=== PATIENT | female | born 1980 | race Caucasian/White ===

== ENCOUNTER 2016-09-02 12:43 | Emergency (ER) | payer OTHER ==
[2016-09-02 12:59] VITALS: PULSE 104; RESP 18
[2016-09-02] MEDS ORDERED: SODIUM CHLORIDE 0.9% 1,000 ML IV STA (14:06)
--- NOTE | 2016-09-02 14:15 | ED ---
Weakness HPI - General Chief complaint: Weakness Stated complaint: Near Syncope Time Seen by Provider: 09/02/16 14:05 Source: patient, RN notes reviewed Mode of arrival: wheelchair Limitations: no limitations - History of Present Illness Initial comments: 36 year old female presents emergency Department chief complaint does not feel well. Patient states that she is nauseated shaky and twitching. Patient states that she feels a little medical level is off. Patient states she is currently seen neurologist for seizure-like activity. Patient states that this is different. Patient has any chest pain, headache, dizziness, vomiting. States she is slightly nauseated. Patient has any focal weakness. Patient states she had a Lamictal level checked today though she has no results. Patient states she takes Lomotil 200 mg twice daily. Patient offers no complaints. - Related Data Home Medications Medication Instructions Recorded Confirmed Topiramate [Topamax] 100 mg PO QAM 06/03/16 09/02/16 Topiramate [Topamax] 200 mg PO HS 06/03/16 09/02/16 lamoTRIgine 200 mg PO BID 06/03/16 09/02/16 ARIPiprazole [Abilify] 10 mg PO DAILY 08/23/16 09/02/16 Sertraline [Zoloft] 100 mg PO DAILY 08/23/16 09/02/16 hydrOXYzine PAMOATE [Vistaril] 50 mg PO HS 08/24/16 09/02/16 Cyclobenzaprine [Flexeril] 10 mg PO TID PRN 08/25/16 09/02/16 Escitalopram [Lexapro] 30 mg PO DAILY 09/02/16 09/02/16 buPROPion HCL [Wellbutrin XL] 300 mg PO DAILY 09/02/16 09/02/16 metFORMIN HCL [Glucophage] 500 mg PO BID 09/02/16 09/02/16 Allergies Allergy/AdvReac Type Severity Reaction Status Date / Time No Known Allergies Allergy Verified 09/02/16 14:30 Review of Systems ROS Statement: Those systems with pertinent positive or pertinent negative responses have been documented in the HPI. ROS Other: All systems not noted in ROS Statement are negative. 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 History of Any Multi-Drug Resistant Organisms: None Reported Past Surgical History: Cholecystectomy, Tubal Ligation Past Anesthesia/Blood Transfusion Reactions: No Reported Reaction Past Psychological History: Anxiety, Bipolar, Depression Smoking Status: Never smoker Past Alcohol Use History: None Reported Past Drug Use History: None Reported - Past Family History Mother Family Medical History: Diabetes Mellitus, Hypertension, Rheumatoid Arthritis ( RA) Father Family Medical History: Hypertension General Exam Limitations: no limitations General appearance: alert, in no apparent distress Head exam: Present: atraumatic, normocephalic, normal inspection Eye exam: Present: normal appearance, PERRL, EOMI. Absent: scleral icterus, conjunctival injection, periorbital swelling Respiratory exam: Present: normal lung sounds bilaterally. Absent: respiratory distress, wheezes, rales, rhonchi, stridor Cardiovascular Exam: Present: regular rate, normal rhythm, normal heart sounds. Absent: systolic murmur, diastolic murmur, rubs, gallop, clicks Extremities exam: Present: normal inspection, full ROM, normal capillary refill , other (Full-strength of upper and lower extremities full range of motion). Absent: tenderness, pedal edema, joint swelling, calf tenderness Back exam: Absent: CVA tenderness (R), CVA tenderness (L) Neurological exam: Present: alert, oriented X3, CN II-XII intact, reflexes normal. Absent: motor sensory deficit Skin exam: Present: warm, dry, intact, normal color. Absent: rash Course Vital Signs 09/02/16 12:55 Temperature 98.3 F Pulse Rate 104 H Respiratory 18 Rate Blood Pressure 138/85 O2 Sat by Pulse 100 Oximetry - Reevaluation(s) Reevaluation #1: 09/02/16 15:58 Family members did come to the desk stating that the patient was having a seizure. I did go back to the room and witnessed her convulsions. patient's hand was placed above her head though she avoid striking her face. Patient had no postictal state. Patient was fighting against me and is untypical of a grand mal seizure. EKG Findings - EKG Comments: EKG Findings:: EKG performed at 14:16 normal sinus rhythm with a rate of 88, NC interval 154, QRS duration 88, QT/QTC 366/442 Medical Decision Making - Medical Decision Making 36-year-old female presented for tremor, feeling weak. Patient states she does not feel right. Patient had multiple evaluations by his psychiatrist, neurologist. Patient has been told this most likely is psychiatric in nature. Patient's did have some sort of motion she had though it seemed to be fake as she responded rate after and had response during the activity. Patient is advised that she is a follow-up outpatient she does have an upcoming appointment with Dr. Mohan. - Lab Data Result diagrams: 09/02/16 14:49 09/02/16 14:49 Lab Results 09/02/16 09/02/16 09/02/16 Range/Units 14:49 14:49 14:49 WBC 8.2 (3.8-10.6) k/uL RBC 4.55 (3.80-5.40) m/uL Hgb 13.1 (11.4-16.0) gm/dL Hct 40.5 (34.0-46.0) % MCV 88.9 D (80.0-100.0) fL MCH 28.8 (25.0-35.0) pg MCHC 32.4 (31.0-37.0) g/dL RDW 13.3 (11.5-15.5) % Plt Count 356 (150-450) k/uL Neutrophils % 72 % Lymphocytes % 21 % Monocytes % 5 % Eosinophils % 0 % Basophils % 0 % Neutrophils # 6.0 (1.3-7.7) k/uL Lymphocytes # 1.7 (1.0-4.8) k/uL Monocytes # 0.4 (0-1.0) k/uL Eosinophils # 0.0 (0-0.7) k/uL Basophils # 0.0 (0-0.2) k/uL Sodium 148 H (137-145) mmol/L Potassium 3.7 (3.5-5.1) mmol/L Chloride 106 (98-107) mmol/L Carbon Dioxide 23 (22-30) mmol/L Anion Gap 19 mmol/L BUN 10 (7-17) mg/dL Creatinine 0.82 (0.52-1.04) mg/dL Est GFR (MDRD) Af Amer >60 (>60 ml/min/1.73 sqM) Est GFR (MDRD) Non-Af >60 (>60 ml/min/1.73 sqM) Glucose 95 (74-99) mg/dL Calcium 9.9 (8.4-10.2) mg/dL Total Bilirubin 0.3 (0.2-1.3) mg/dL AST 19 (14-36) U/L ALT 26 (9-52) U/L Alkaline Phosphatase 47 (38-126) U/L Total Creatine Kinase 48 (30-135) U/L CK-MB (CK-2) 2.0 (0.0-2.4) ng/mL CK-MB (CK-2) Rel Index 4.2 Troponin I <0.012 (0.000-0.034) ng/mL Total Protein 7.6 (6.3-8.2) g/dL Albumin 4.7 (3.5-5.0) g/dL Urine Color Urine Appearance (Clear) Urine pH (5.0-8.0) Ur Specific [place] (1.001-1.035) Urine Protein (Negative) Urine Glucose (UA) (Negative) Urine Ketones (Negative) Urine Blood (Negative) Urine Nitrate (Negative) Urine Bilirubin (Negative) Urine Urobilinogen (<2.0) mg/dL Ur Leukocyte Esterase (Negative) Urine Opiates Screen (NotDetected) Ur Oxycodone Screen (NotDetected) Urine Methadone Screen (NotDetected) Ur Propoxyphene Screen (NotDetected) Ur Barbiturates Screen (NotDetected) U Tricyclic Antidepress (NotDetected) Ur Phencyclidine Scrn (NotDetected) Ur Amphetamines Screen (NotDetected) U Methamphetamines Scrn (NotDetected) U Benzodiazepines Scrn (NotDetected) Urine Cocaine Screen (NotDetected) U Marijuana (THC) Screen (NotDetected) 09/02/16 09/02/16 Range/Units 16:13 16:13 WBC (3.8-10.6) k/uL RBC (3.80-5.40) m/uL Hgb (11.4-16.0) gm/dL Hct (34.0-46.0) % MCV (80.0-100.0) fL MCH (25.0-35.0) pg MCHC (31.0-37.0) g/dL RDW (11.5-15.5) % Plt Count (150-450) k/uL Neutrophils % % Lymphocytes % % Monocytes % % Eosinophils % % Basophils % % Neutrophils # (1.3-7.7) k/uL Lymphocytes # (1.0-4.8) k/uL Monocytes # (0-1.0) k/uL Eosinophils # (0-0.7) k/uL Basophils # (0-0.2) k/uL Sodium (137-145) mmol/L Potassium (3.5-5.1) mmol/L Chloride (98-107) mmol/L Carbon Dioxide (22-30) mmol/L Anion Gap mmol/L BUN (7-17) mg/dL Creatinine (0.52-1.04) mg/dL Est GFR (MDRD) Af Amer (>60 ml/min/1.73 sqM) Est GFR (MDRD) Non-Af (>60 ml/min/1.73 sqM) Glucose (74-99) mg/dL Calcium (8.4-10.2) mg/dL Total Bilirubin (0.2-1.3) mg/dL AST (14-36) U/L ALT (9-52) U/L Alkaline Phosphatase (38-126) U/L Total Creatine Kinase (30-135) U/L CK-MB (CK-2) (0.0-2.4) ng/mL CK-MB (CK-2) Rel Index Troponin I (0.000-0.034) ng/mL Total Protein (6.3-8.2) g/dL Albumin (3.5-5.0) g/dL Urine Color Light Yellow Urine Appearance Clear (Clear) Urine pH 7.0 (5.0-8.0) Ur Specific [place] 1.011 (1.001-1.035) Urine Protein Negative (Negative) Urine Glucose (UA) Negative (Negative) Urine Ketones Negative (Negative) Urine Blood Negative (Negative) Urine Nitrate Negative (Negative) Urine Bilirubin Negative (Negative) Urine Urobilinogen <2.0 (<2.0) mg/dL Ur Leukocyte Esterase Negative (Negative) Urine Opiates Screen Not Detected (NotDetected) Ur Oxycodone Screen Not Detected (NotDetected) Urine Methadone Screen Not Detected (NotDetected) Ur Propoxyphene Screen Not Detected (NotDetected) Ur Barbiturates Screen Not Detected (NotDetected) U Tricyclic Antidepress Not Detected (NotDetected) Ur Phencyclidine Scrn Not Detected (NotDetected) Ur Amphetamines Screen Not Detected (NotDetected) U Methamphetamines Scrn Not Detected (NotDetected) U Benzodiazepines Scrn Not Detected (NotDetected) Urine Cocaine Screen Not Detected (NotDetected) U Marijuana (THC) Screen Not Detected (NotDetected) Disposition Clinical Impression: Pseudoseizure, Occasional tremors Disposition: HOME SELF-CARE Condition: Stable Instructions: Recurrent Seizures in Adults (ED) Additional Instructions: Please return to the Emergency Department if symptoms worsen or any other concerns. Time of Disposition: 16:58
[2016-09-02 15:09] LABS: Basophils % (A) 0 %; CH 29.9; CHCM 33.8; Eosinophils % (A) 0 %; HCT 40.5 % (34.0-46.0); HGB 13.1 gm/dL (11.4-16.0); Luc % (Auto) 1; Lymphocytes # (A) 1.7 k/uL (1.0-4.8); Lymphocytes % (A) 21 %; MCH 28.8 pg (25.0-35.0); MCHC 32.4 g/dL (31.0-37.0); Mean Platelet Volume 7.8; Monocytes # (A) 0.4 k/uL (0-1.0); Monocytes % (A) 5 %; Neutrophils % (A) 72 %; RBC 4.55 m/uL (3.80-5.40); RDW 13.3 % (11.5-15.5); WBC 8.2 k/uL (3.8-10.6); WBC (Perox) 8.26
[2016-09-02 15:18] LABS: MCV 88.9 fL (80.0-100.0)
[2016-09-02 15:24] LABS: ALT 26 U/L (9-52); AST 19 U/L (14-36); Alkaline Phosphatase 47 U/L (38-126); Anion Gap 19 mmol/L; Blood Urea Nitrogen 10 mg/dL (7-17); Calcium 9.9 mg/dL (8.4-10.2); Carbon Dioxide 23 mmol/L (22-30); Chloride 106 mmol/L (98-107); Glucose 95 mg/dL (74-99); Non-African American GFR(MDRD) >60 (>60 ml/min/1.73 sqM); Potassium 3.7 mmol/L (3.5-5.1); Sodium 148 mmol/L (137-145); Total Bilirubin 0.3 mg/dL (0.2-1.3); Total Protein 7.6 g/dL (6.3-8.2)
[2016-09-02 15:27] LABS: Creatine Kinase 48 U/L (30-135)
[2016-09-02 15:40] LABS: Troponin I <0.012 ng/mL (0.000-0.034)
[2016-09-02] MEDS ORDERED: LORazepam 2 MG/ML SYRINGE IV STA (15:57)
[2016-09-02 16:32] LABS: Appearance,Urine Clear (Clear); Bilirubin,Urine Negative (Negative); Glucose,Urine (UA) Negative (Negative); Ketones,Urine Negative (Negative); Leukocyte Esterase,Urine Negative (Negative); Nitrite,Urine Negative (Negative); Protein,Urine Negative (Negative); Specific Gravity,Urine 1.011 (1.001-1.035); UA Billing (MACRO vs. MICRO) CHEM; Urobilinogen,Urine <2.0 mg/dL (<2.0)
[2016-09-02 17:18] VITALS: BP 140/75; TEMP 98.9
== END 2016-09-02 17:18 | disposition home or self-care (01) ==
LOC: EC 12:43
DX: G40.89 Other seizures (principal); R25.1 Tremor, unspecified; F41.9 Anxiety disorder, unspecified; F31.9 Bipolar disorder, unspecified; E66.9 Obesity, unspecified; Z68.35 Body mass index [BMI] 35.0-35.9, adult; Z79.84 Long term (current) use of oral hypoglycemic drugs; Z79.899 Other long term (current) drug therapy
CPT/HCPCS: 99285; 96374; 96361; 36415; 93005; 80053; 80175; 82550; 82553; 84484; 85025; 81003; 80306; J2060

== ENCOUNTER → 2016-09-02 | Outpatient (CLI) | payer OTHER | END | disposition home or self-care (01) | LOC: LABWHC1 12:16 | PROVIDERS: ATTEND Physician Assistant | DX: R56.9 Unspecified convulsions (principal) | CPT/HCPCS: 36415; 80175 ==

== ENCOUNTER → 2016-09-16 | Outpatient (CLI) | payer OTHER | END | disposition home or self-care (01) | LOC: LABWHC1 16:06 | PROVIDERS: ATTEND Psychiatry & Neurology Psychiatry | DX: F31.9 Bipolar disorder, unspecified (principal) | CPT/HCPCS: 36415; 80175 ==

== ENCOUNTER 2020-08-10 12:21 | Observation (INO) | payer OTHER ==
[2020-08-10] MEDS ORDERED: SODIUM CHLORIDE 0.9% 500 ML 500 ML IV STA (12:35)
--- NOTE | 2020-08-10 12:39 | ED ---
General Adult HPI - General Stated complaint: Seizure Time Seen by Provider: 08/10/20 12:23 Source: patient, EMS, RN notes reviewed, old records reviewed - History of Present Illness Initial comments: 40-year-old female presenting with seizure. Patient has known seizure disorder. She is on Topamax and benzodiazepines. She had been noted by friends to have seizure activity, EMS was called patient was given 5 mg of intramuscular Versed and transported to the emergency department. She was initially postictal however after approximate 5 minutes she was able to give a history. Including medications. She does state that she follows with neurology at [facility]. She has approximately 2 seizures weekly. She reports that she is tired but otherwise feels okay. - Related Data Home Medications Medication Instructions Recorded Confirmed Sertraline [Zoloft] 100 mg PO DAILY 08/23/16 08/10/20 Albuterol Sulfate [Proair Hfa] 1 - 2 puff INHALATION RT-Q6H PRN 08/10/20 08/10/20 LORazepam [Ativan] 1 - 2 mg PO DAILY PRN 08/10/20 08/10/20 Levothyroxine Sodium [Synthroid] 175 mcg PO Q48H 08/10/20 08/10/20 [place] Carbonate 600 mg PO BID 08/10/20 08/10/20 QUEtiapine FUMARATE [SEROquel] 600 mg PO HS 08/10/20 08/10/20 Topiramate [Topamax] 200 mg PO BID 08/10/20 08/10/20 lamoTRIgine [LaMICtal] See Taper PO DAILY 08/10/20 08/10/20 metFORMIN HCL 1,000 mg PO BID 08/10/20 08/10/20 rOPINIRole HCL [Requip] 6 mg PO HS 08/10/20 08/10/20 Allergies Allergy/AdvReac Type Severity Reaction Status Date / Time levetiracetam [From Keppra] AdvReac anger Verified 08/10/20 14:12 Review of Systems ROS Statement: Those systems with pertinent positive or pertinent negative responses have been documented in the HPI. ROS Other: All systems not noted in ROS Statement are negative. 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 History of Any Multi-Drug Resistant Organisms: None Reported Past Surgical History: Cholecystectomy, Tubal Ligation Past Anesthesia/Blood Transfusion Reactions: No Reported Reaction Past Psychological History: Anxiety, Bipolar, Depression Past Alcohol Use History: None Reported Past Drug Use History: None Reported - Past Family History Mother Family Medical History: Diabetes Mellitus, Hypertension, Rheumatoid Arthritis (RA) Father Family Medical History: Hypertension General Exam General appearance: in no apparent distress, lethargic Head exam: Present: atraumatic, normocephalic Eye exam: Present: normal appearance, PERRL ENT exam: Present: normal exam Neck exam: Present: normal inspection. Absent: tenderness, meningismus Respiratory exam: Present: normal lung sounds bilaterally. Absent: respiratory distress, wheezes Cardiovascular Exam: Present: regular rate, normal rhythm GI/Abdominal exam: Present: soft. Absent: distended, tenderness, guarding, rebound Extremities exam: Present: normal inspection, normal capillary refill. Absent: pedal edema, calf tenderness Neurological exam: Present: alert, oriented X3 (Slow to respond). Absent: motor sensory deficit Skin exam: Present: warm, dry, intact. Absent: cyanosis, diaphoretic Course Vital Signs 08/10/20 08/10/20 08/10/20 12:26 13:00 14:11 Temperature 98.9 F Pulse Rate 71 77 89 Respiratory 18 18 Rate Blood Pressure 120/71 146/92 O2 Sat by Pulse 100 100 100 Oximetry 08/10/20 08/10/20 08/10/20 14:13 15:26 15:39 Temperature 99 F Pulse Rate 71 77 88 Respiratory 18 18 18 Rate Blood Pressure 112/75 106/73 107/68 O2 Sat by Pulse 100 100 100 Oximetry - Reevaluation(s) Reevaluation #1: 08/10/20 14:18 Patient does have seizure-like activity in the emergency department she is not responsive and she is given 2 mg of Ativan. EKG Findings - EKG Comments: EKG Findings:: EKG: Normal sinus rhythm, rate 67, AR interval 164, QRS duration 104, QTC 445, no ischemic changes, no ST segment elevation. Medical Decision Making - Medical Decision Making 40-year-old female presenting for evaluation of seizure. Patient has history of recurrent seizure. She did have at least 2 seizures prior to arrival and then has an additional 2 seizures while in the emergency department. She was alert and oriented with a nonfocal neurologic exam in between her seizure activity. She has normal CBC. Electrolytes and CMP are pending. Given the recurrent nature of her seizure. Will admit for close monitoring, seizure precaution. Case has been discussed with Dr. Monge who will admit, neurology placed on consult. - Lab Data Result diagrams: 08/10/20 13:50 08/10/20 13:50 Lab Results 08/10/20 08/10/20 Range/Units 13:50 13:50 WBC 5.5 (3.8-10.6) k/uL RBC 4.13 (3.80-5.40) m/uL Hgb 11.8 (11.4-16.0) gm/dL Hct 36.6 (34.0-46.0) % MCV 88.5 (80.0-100.0) fL MCH 28.6 (25.0-35.0) pg MCHC 32.3 (31.0-37.0) g/dL RDW 13.8 (11.5-15.5) % Plt Count 247 (150-450) k/uL MPV 7.3 Neutrophils % 73 % Lymphocytes % 18 % Monocytes % 5 % Eosinophils % 1 % Basophils % 0 % Neutrophils # 4.0 (1.3-7.7) k/uL Lymphocytes # 1.0 (1.0-4.8) k/uL Monocytes # 0.3 (0-1.0) k/uL Eosinophils # 0.1 (0-0.7) k/uL Basophils # 0.0 (0-0.2) k/uL Hypochromasia Moderate Sodium 143 (137-145) mmol/L Potassium 3.3 L (3.5-5.1) mmol/L Chloride 116 H (98-107) mmol/L Carbon Dioxide 18 L (22-30) mmol/L Anion Gap 9 mmol/L BUN 12 (7-17) mg/dL Creatinine 0.86 (0.52-1.04) mg/dL Est GFR (CKD-EPI)AfAm >90 (>60 ml/min/1.73 sqM) Est GFR (CKD-EPI)NonAf 85 (>60 ml/min/1.73 sqM) Glucose 79 (74-99) mg/dL Calcium 9.0 (8.4-10.2) mg/dL Total Bilirubin 0.4 (0.2-1.3) mg/dL AST 21 (14-36) U/L ALT 14 (4-34) U/L Alkaline Phosphatase 34 L (38-126) U/L Total Protein 6.5 (6.3-8.2) g/dL Albumin 3.7 (3.5-5.0) g/dL Disposition Clinical Impression: Intractable seizure disorder, Seizure Disposition: ADMITTED IP TO THIS [facility] Condition: Stable Is patient prescribed a controlled substance at d/c from ED?: No Decision to Admit Reason: Admit from EC Decision Date: 08/10/20 Decision Time: 15:03
[2020-08-10] MEDS ORDERED: LORazepam 2 MG/ML INJ IV STA ×2 (14:03→15:41)
[2020-08-10 14:07] LABS: Basophils % (A) 0 %; Eosinophils # (A) 0.1 k/uL (0-0.7); Eosinophils % (A) 1 %; HCT 36.6 % (34.0-46.0); HGB 11.8 gm/dL (11.4-16.0); Hypochromasia Moderate; Lymphocytes % (A) 18 %; MCH 28.6 pg (25.0-35.0); MCHC 32.3 g/dL (31.0-37.0); MCV 88.5 fL (80.0-100.0); Mean Platelet Volume 7.3; Monocytes # (A) 0.3 k/uL (0-1.0); Monocytes % (A) 5 %; Neutrophils % (A) 73 %; Platelet Count 247 k/uL (150-450); RBC 4.13 m/uL (3.80-5.40); RDW 13.8 % (11.5-15.5); WBC 5.5 k/uL (3.8-10.6)
[2020-08-10] MEDS ORDERED: NALOXONE 0.4 MG/ML 1 ML VIAL IV PRN (14:59)
[2020-08-10 15:22] LABS: ALT 14 U/L (4-34); AST 21 U/L (14-36); African American GFR (CKD) >90 (>60 ml/min/1.73 sqM); Albumin 3.7 g/dL (3.5-5.0); Alkaline Phosphatase 34 U/L (38-126); Anion Gap 9 mmol/L; Blood Urea Nitrogen 12 mg/dL (7-17); Carbon Dioxide 18 mmol/L (22-30); Chloride 116 mmol/L (98-107); Glucose 79 mg/dL (74-99); Non-African American GFR(CKD) 85 (>60 ml/min/1.73 sqM); Potassium 3.3 mmol/L (3.5-5.1); Sodium 143 mmol/L (137-145); Total Bilirubin 0.4 mg/dL (0.2-1.3); Total Protein 6.5 g/dL (6.3-8.2)
[2020-08-10] MEDS ORDERED: LORazepam 2 MG/ML INJ IV PRN (15:46)
[2020-08-10 16:11] LABS: Amorphous Sediment,Urine Rare /hpf; Appearance,Urine Cloudy (Clear); Bacteria,Urine Few /hpf; Bilirubin,Urine Negative (Negative); Blood,Urine Small (Negative); Calcium Oxalate Crystals,Urine Many /hpf; Color,Urine Yellow; Glucose,Urine (UA) Negative (Negative); Ketones,Urine Negative (Negative); Leukocyte Esterase,Urine Large (Negative); Mucus,Urine Rare /hpf; Nitrite,Urine Negative (Negative); PH, Urine 5.5 (5.0-8.0); Protein,Urine Trace (Negative); RBC,Urine 18 /hpf (0-5); Squamous Epithelial Cell,Urine 21 /hpf (0-4); Urobilinogen,Urine <2.0 mg/dL (<2.0); WBC,Urine >182 /hpf (0-5)
[2020-08-10 16:13] LABS: Amphetamine Screen,Urine Not Detected (NotDetected); Barbiturate Screen,Urine Not Detected (NotDetected); Benzodiazepines Screen,Urine Detected (NotDetected); Cocaine Screen,Urine Not Detected (NotDetected); Methadone Screen, Urine Not Detected (NotDetected); Opiate Screen,Urine Not Detected (NotDetected); Oxycodone Screen, Urine Not Detected (NotDetected); Phencyclidine Screen,Urine Not Detected (NotDetected); Tricyclic Antidepressant,Urine Detected (NotDetected); Urn Cannabinoid Scrn Detected (NotDetected)
[2020-08-10] MEDS: SODIUM CHLORIDE 0.9% 1,000 ML IV SCH (16:18)
[2020-08-10] MEDS ORDERED: cefTRIAXone IN SWFI 1,000 MG/10 ML SYRINGE IVP STA (16:23)
[2020-08-10] MEDS: POTASSIUM CHLORIDE 10 MEQ in WATER FOR INJECTION 1 100ML.BAG IVPB SCH ×4 (16:43→23:22)
--- NOTE | 2020-08-10 16:44 | CT ---
EXAMINATION TYPE: CT brain wo con DATE OF EXAM: 08/10/2020 COMPARISON: 08/17/2016. HISTORY: seizures CT DLP: 1102.4 mGycm. Automated Exposure Control for Dose Reduction was Utilized. TECHNIQUE: CT scan of the head is performed without contrast. FINDINGS: There is no acute intracranial hemorrhage, mass effect, or midline shift identified. The ventricles and sulci are within normal limits in size. The globes are intact and the visualized sin uses are clear. There is stable partial pneumatization of the left mastoid air cells, may be congenit al versus prior disease. IMPRESSION: No acute intracranial hemorrhage, mass effect, or midline shift is seen.
--- NOTE | 2020-08-10 18:21 | P.HPIM ---
History of Present Illness H&P Date: 08/10/20 Chief Complaint: seizure 40-year-old female with a past medical history of seizure disorder, pseudoseizures disorder, and bipolar disorder who was brought in the ER by EMS when friends noted seizure activity. EMS gave 5 of IM first said in transport to the emergency department. Initially on arrival she appeared post ictal. Patient reported in the emergency department that she follows with neurology at [facility] has approximately 2 seizures weekly. Initial laboratory analysis showed a potassium of 3.3, chloride 116, and carbon dioxide of 18. She had what appeared to be a pseudoseizure and 1 additional real seizure in the emergency department. She received Ativan. Head CT with no acute process. She was admitted to the cardiac floor for further monitoring. On arrival here she was intermittently following commands and moving her lower extremities were flapping her upper extremities as witnessed by nursing. She then was noted actively s triking the bed with her hands. When I entered the room she was laying on her left hand side and moaning with moving her left upper extremities. Over this was not tonic-clonic in nature and appeared purposeful. When all of this started she was reaching to turn off the alarm on the vitals machine. She then refused to answer any of my questions. When she was she was told she wouldn't be getting any Ativan for this activty her left upper extremity shaking stopped. She then resisted being rolled onto her back and did not participate in physical exam. I informed her that she would recieve ativan if signs of true seizure activty and that she will be seen by neurology and psychiatry. Patient refused to answer all questions. and information obtained from prior records and the emergency department. When I went to leave the room she clearly stated that typically they intubate her for this. She did not have any signs of postictal state. No loss of bowel or bladder, no tongue biting. Review of Systems Pertinent positives and negatives as discussed in HPI, a complete review of systems was performed and all other systems are negative. Past Medical History Past Medical History: No Reported History, Unable to Obtain Additional Past Medical History / Comment(s): Seizure-like activity/pseudoseizures, obesity, Polycystic ovary syndrome maintained on metformin outpatient basis, bipolar disorder/depression. History of Any Multi-Drug Resistant Organisms: None Reported Past Surgical History: Cholecystectomy, Tubal Ligation Past Anesthesia/Blood Transfusion Reactions: No Reported Reaction Past Psychological History: Anxiety, Bipolar, Depression Past Alcohol Use History: None Reported Past Drug Use History: None Reported - Past Family History Mother Family Medical History: Diabetes Mellitus, Hypertension, Rheumatoid Arthritis (RA) Father Family Medical History: Hypertension Medications and Allergies Home Medications Medication Instructions Recorded Confirmed Type Sertraline [Zoloft] 100 mg PO DAILY 08/23/16 08/10/20 History Albuterol Sulfate [Proair Hfa] 1 - 2 puff INHALATION RT-Q6H PRN 08/10/20 08/10/20 History LORazepam [Ativan] 1 - 2 mg PO DAILY PRN 08/10/20 08/10/20 History Levothyroxine Sodium [Synthroid] 175 mcg PO Q48H 08/10/20 08/10/20 History [place] Carbonate 600 mg PO BID 08/10/20 08/10/20 History QUEtiapine FUMARATE [SEROquel] 600 mg PO HS 08/10/20 08/10/20 History Topiramate [Topamax] 200 mg PO BID 08/10/20 08/10/20 History lamoTRIgine [LaMICtal] See Taper PO DAILY 08/10/20 08/10/20 History metFORMIN HCL 1,000 mg PO BID 08/10/20 08/10/20 History rOPINIRole HCL [Requip] 6 mg PO HS 08/10/20 08/10/20 History Allergies Allergy/AdvReac Type Severity Reaction Status Date / Time levetiracetam [From [facility]] AdvReac anger Verified 08/10/20 14:12 Physical Exam Osteopathic Statement: *. No significant issues noted on an osteopathic structural exam other than those noted in the History and Physical/Consult. Vitals: Vital Signs Temp Pulse Pulse Resp BP BP Pulse Ox 08/10/20 15:39 99 F 88 18 107/68 100 08/10/20 15:26 77 18 106/73 100 08/10/20 15:21 97.8 F 72 18 91/54 100 08/10/20 14:13 71 18 112/75 100 08/10/20 14:11 89 100 08/10/20 13:00 77 18 146/92 100 08/10/20 12:26 98.9 F 71 18 120/71 100 Intake and Output 08/10/20 08/10/20 08/10/20 06:59 14:59 22:59 Other: Weight 79.379 kg 79.379 kg General: non toxic, no distress, appears at stated age Derm: warm, dry Head: atraumatic, normocephalic, symmetric Eyes: EOMI, no lid lag, anicteric sclera, pupils equal round reactive to light ENT: Nose and ears atraumatic, no thrush, no pharyngeal erythema Neck: No thyromegaly, no cervical lymphadenopathy, trachea midline, supple Mouth: no lip lesion, mucus membranes moist Cardiovascular: S1S2 reg, no murmur, positive posterior tibial pulse bilateral, no edema, capillary refill less than 2 seconds Lungs: clear to ascultation bilateral, no ronchi, no rales, no wheeze, no accessory muscle use Abdominal: soft, nontender to palpation, no guarding, no appreciable organomegaly, normal bowel sounds Ext: no gross muscle atrophy, Moving all 4 extremieis independently, no contractures Neuro: moaning and lying on her left side with non tonic-clonic shaking, eyes focused ahead without nystagamous, No post ictal state noted as clear spoken when wanted to, moving all 4 extremites independently. patellar reflex 3/4 bicep reflex 2/4. Psych: eyes open and refusing to answer questions. Results CBC & Chem 7: 08/10/20 13:50 08/10/20 13:50 Labs: Abnormal Lab Results - Last 24 Hours (Table) 08/10/20 08/10/20 Range/Units 13:50 15:38 Potassium 3.3 L (3.5-5.1) mmol/L Chloride 116 H (98-107) mmol/L Carbon Dioxide 18 L (22-30) mmol/L Alkaline Phosphatase 34 L (38-126) U/L Urine Appearance Cloudy H (Clear) Urine Protein Trace H (Negative) Urine Blood Small H (Negative) Ur Leukocyte Esterase Large H (Negative) Urine RBC 18 H (0-5) /hpf Urine WBC >182 H (0-5) /hpf Ur Squamous Epith Cells 21 H (0-4) /hpf Calcium Oxalate Crystal Many H (None) /hpf Amorphous Sediment Rare H (None) /hpf Urine Bacteria Few H (None) /hpf Urine Mucus Rare H (None) /hpf U Tricyclic Antidepress Detected H (NotDetected) U Benzodiazepines Scrn Detected H (NotDetected) U Marijuana (THC) Screen Detected H (NotDetected) CT Scan - head: report reviewed Thrombosis Risk Factor Assmnt - DVT/VTE Prophylaxis DVT/VTE Prophylaxis: Pharmacologic Prophylaxis ordered - Choose All That Apply Any of the Below Risk Factors Present?: No Assessment and Plan Assessment: Breakthrough Seizure vs pseudoseizure activity - stat prolactic, lactic acid, and CPK - Neuro and psych consult - seizure precautions - check lamictal and toprmate levels Hypokalemia - repleace and recheck in AM Contaminated UA - repeat in AM The patient is admitted with an anticipated greater than 2 midnight stay for evaluation of breakthrough seizure. Surrogate decision-maker: patient unable to determine CODE STATUS:full by default DVT prophylaxis: SCDs Discussed with: patient, nursing, ED physician Anticipated discharge date: 1-[address]: home A total of 65 minutes was spent on the care of this complex patient more than 50 % of the time was spent in counseling and care coordination.
[2020-08-10 22:53] LABS: Prolactin 12.3 ng/mL (2.8-29.2)
[2020-08-11] MEDS: SODIUM CHLORIDE 0.9% 1,000 ML IV SCH ×2 (04:56→20:17)
[2020-08-11 07:43] LABS: HCT 34.1 % (34.0-46.0); HGB 11.2 gm/dL (11.4-16.0); Hypochromasia Slight; MCH 28.4 pg (25.0-35.0); MCHC 32.7 g/dL (31.0-37.0); MCV 86.7 fL (80.0-100.0); Mean Platelet Volume 7.1; Platelet Count 239 k/uL (150-450); RBC 3.94 m/uL (3.80-5.40); WBC 4.3 k/uL (3.8-10.6)
[2020-08-11 07:55] LABS: African American GFR (CKD) >90 (>60 ml/min/1.73 sqM); Anion Gap 5 mmol/L; Blood Urea Nitrogen 9 mg/dL (7-17); Calcium 8.4 mg/dL (8.4-10.2); Carbon Dioxide 19 mmol/L (22-30); Chloride 116 mmol/L (98-107); Glucose 81 mg/dL (74-99); Non-African American GFR(CKD) >90 (>60 ml/min/1.73 sqM); Potassium 3.7 mmol/L (3.5-5.1); Sodium 140 mmol/L (137-145)
[2020-08-11] MEDS ORDERED: ALBUTEROL NEBULIZED 2.5 MG/3 ML INHALATION PRN (08:12)
[2020-08-11] MEDS ORDERED: LEVOTHYROXINE 88 MCG TAB PO ONE (08:15)
[2020-08-11] MEDS: metFORMIN 500 MG TAB PO SCH ×2 (09:12→20:26)
[2020-08-11] MEDS: SERTRALINE 100 MG TAB PO SCH (09:12)
[2020-08-11] MEDS: LITHIUM CARBONATE 300 MG CAP PO SCH ×2 (09:12→20:27)
[2020-08-11] MEDS: TOPIRAMATE 100 MG TAB PO SCH ×2 (09:12→20:26)
--- NOTE | 2020-08-11 13:51 | P.CN ---
Psychiatric Consult - . Consult date: 08/11/20 Consult:: 08/11/20 13:45 Television Schedule Coordinator attempted to see patient today at the bedside for a psychiatric consult for patient's "bipolar, pseudoseizures". EMR was reviewed and showed the patient presented with seizure-like activity as patient does have a history of seizure disorder and is on Topamax and benzodiazepines. Patient apparently had a witnessed seizure by a friend who called EMS prior to coming hospital. Patient was apparently postictal for about 5 minutes in the ER however was able to give some information at that time. Patient had another 2 seizures in the ER and received Ativan prior to being admitted to the medical floors. Patient had a UDS which is positive for TCAs, benzodiazepines and THC. CAT scan showed no acute changes. The patient has an neurology consult ordered and EEG pending. Nurse taking care of patient claims that she has a flat affect and has been slow to respond and how there has been question of possible pseudoseizure given patient's behaviors. Patient is noted to be on lithium 600 mg twice a day Seroquel 600 mg at bedtime Requip 6 mg daily at bedtime and Zoloft 100 mg daily. Patient was attempted a seen at the bedside however was not responding to typewriter assembler and had her head turned in her eyes closed and appeared to be having writhing movements in her bed. Patient was unable to answer any questions during the evaluation. Plan: Could not do a proper evaluation at this time due to patient's current mental status. Ordered lithium level for tomorrow morning prior to a.m. dosing. Agree with neuro consultation and EEG, awaiting results. Patient can continue on her home dose of medications including lithium 600 twice a day Seroquel 600 at bedtime Requip 6 hs and Zoloft 100 mg daily. Once patient is more awake and able to communicate then can consider reconsulting psych if needed. At this t regino we'll have to await further neurology recommendations to see if this is actually pseudo-seizures. Please contact with any questions thank you.
--- NOTE | 2020-08-11 14:40 | P.PN ---
Subjective Progress Note Date: 08/11/20 (delayed charting seen at 0915) Principal diagnosis: seizure Patient is a 40-year-old female with a past medical history of seizure disorder, pseudoseizures disorder, and bipolar disorder who was brought in the ER by EMS when friends noted seizure activity. EMS gave 5 of IM Versed in transport to the emergency department. Initially on arrival she appeared post ictal. Patient reported in the emergency department that she follows with neurology at [facility] has approximately 2 seizures weekly. Initial laboratory analysis showed a potassium of 3.3, chloride 116, and carbon dioxide of 18. She had what appeared to be a pseudoseizure and 1 additional real seizure in the emergency department with a post ictal state. She received Ativan. Head CT wit h no acute process. She was admitted to the cardiac floor for further monitoring. On arrival here she was intermittently following commands and moving her lower extremities while flapping her upper extremities as witnessed by nursing. She then was noted actively striking the bed with her hands. She was asking to be intubated for her seizures. After this activity a stat lactic acid and prolactin level were ordered and normal. Which are consistent with pseudoseizure. Patient seen and examined at bedside. She shakes her head yes to all questions asked: [place], nausea, chest pain, lgiht headed, short of breath, tired. General: non toxic, no distress, appears at stated age Derm: warm, dry Head: atraumatic, normocephalic, symmetric Eyes: EOMI, no lid lag, anicteric sclera Mouth: no lip lesion, mucus membranes moist Cardiovascular: S1S2 reg, no murmur, positive posterior tibial pulse bilateral, Lungs: CTA bilateral, no rhonchi, no rales , no accessory muscle use Abdominal: soft, nontender to palpation, no guarding, no appreciable organomegaly Ext: no gross muscle atrophy, no edema, no contractures Neuro: CN II-XI grossly intact, no focal neuro deficits Psych: Alert, oriented, Flat affect Breakthrough Seizure with pseudoseizure activity - stat prolactic, lactic acid were normal and CPK mildly elevated. Suspect that patient intially had a seizure in the filed and then subsequent activity noted was from pseudoseizure. - Neuro consult pending - Psych rece appreciated - seizure precautions - Await Lamictal and toprmate levels, conitnue meds Contaminated UA - repeat in AM Hypokalemia, resolved DVT prophylaxis: SCDs Discussed with: patient, nursing Anticipated discharge date: in AM Anticipated discharge place: home A total of 35 minutes was spent on the care of this complex patient more than 50% of the time was spent in counseling and care coordination. Objective - Vital Signs Vital signs: Vital Signs Temp 98.5 F 08/11/20 08:00 Pulse 84 08/11/20 08:00 Resp 18 08/11/20 04:00 BP 97/59 08/11/20 08:00 Pulse Ox 99 08/11/20 08:00 Intake & Output 08/10/20 08/11/20 08/11/20 18:59 06:59 18:59 Intake Total 600 Balance 600 Weight 79.379 kg 79 kg Intake: Intake, IV Titration 600 Amount Potassium Chloride 10 meq 300 In Water For Injection 1 100ml.bag @ 100 mls/hr IVPB Q1HR [facility] Rx#: [id number] Sodium Chloride 0.9% 1, 300 000 ml @ 75 mls/hr IV . [id number] [facility] Rx#:[id number] Other: # Voids 0 - Labs CBC & Chem 7: 08/11/20 06:34 08/11/20 06:34 Labs: Abnormal Lab Results - Last 24 Hours (Table) 08/10/20 08/10/20 08/10/20 Range/Units 13:50 15:38 18:17 Hgb (11.4-16.0) gm/dL Potassium 3.3 L (3.5-5.1) mmol/L Chloride 116 H (98-107) mmol/L Carbon Dioxide 18 L (22-30) mmol/L Alkaline Phosphatase 34 L (38-126) U/L Creatine Kinase 221 H (30-135) U/L Urine Appearance Cloudy H (Clear) Urine Protein Trace H (Negative) Urine Blood Small H (Negative) Ur Leukocyte Esterase Large H (Negative) Urine RBC 18 H (0-5) /hpf Urine WBC >182 H (0-5) /hpf Ur Squamous Epith Cells 21 H (0-4) /hpf Calcium Oxalate Crystal Many H (None) /hpf Amorphous Sediment Rare H (None) /hpf Urine Bacteria Few H (None) /hpf Urine Mucus Rare H (None) /hpf U Tricyclic Antidepress Detected H (NotDetected) U Benzodiazepines Scrn Detected H (NotDetected) U Marijuana (THC) Screen Detected H (NotDetected) 08/11/20 08/11/20 Range/Units 06:34 06:34 Hgb 11.2 L (11.4-16.0) gm/dL Potassium (3.5-5.1) mmol/L Chloride 116 H (98-107) mmol/L Carbon Dioxide 19 L (22-30) mmol/L Alkaline Phosphatase (38-126) U/L Creatine Kinase (30-135) U/L Urine Appearance (Clear) Urine Protein (Negative) Urine Blood (Negative) Ur Leukocyte Esterase (Negative) Urine RBC (0-5) /hpf Urine WBC (0-5) /hpf Ur Squamous Epith Cells (0-4) /hpf Calcium Oxalate Crystal (None) /hpf Amorphous Sediment (None) /hpf Urine Bacteria (None) /hpf Urine Mucus (None) /hpf U Tricyclic Antidepress (NotDetected) U Benzodiazepines Scrn (NotDetected) U Marijuana (THC) Screen (NotDetected) Microbiology - Last 24 Hours (Table) 08/10/20 15:38 Urine Culture - Preliminary Urine,Voided
--- NOTE | 2020-08-11 16:02 | P.CNNES ---
History of Present Illness Consult date: 08/11/20 Requesting physician: Errol Gutierrez Reason for Consult: Seizure History of Present Illness: Patient is a 40-year-old female came to the hospital yesterday at 12:21 PM for multiple seizures. Patient states that she has history of seizure disorder for last 4-1/2 years. Patient follows up with Dr. Mast at [facility]. Patient most currently is on Topamax 200 mg twice a day and Epidiolex 3.5 ml twice a day. Patient says that she is having seizures about 3 times a week. Patient last time seen by her neurologist was couple months ago and has a another appointment due next month. Patient came to the hospital where she has multiple seizures, she believes 9-10 seizures within an hour. She denies mis sing any doses of her seizure medications. Patient states that she did lose control of urine and bit her tongue although I could not see any tongue bite anusha on her tongue. Patient states that she was doing better while she was on Lamictal 200 mg twice a day. Her medications were adjusted, Lamictal weaned off, and now on Epidiolex. Patient believes that this new combination is not working as well. She states that she stopped Lamictal 4 years ago. Patient's vitals on arrival blood pressure 120/71, pulse rate [address] head in EKG normal. Labs reveal normal CBC, normal sodium, potassium 3.3, BUN 12, creatinine 0.86, hepatic panel normal. Prolactin normal 12.3. UA shows large amount of leukocyte Estrace and 18 RBC and more than 182 WBCs. Few bacteria. Urine drug screen positive for tricyclic antidepressant, benzodiazepine and marijuana. Patient has been started on Rocephin 1 g for possible UTI. Patient at present is taking Topamax 200 mg twice a day, and Epidiolex 3.5 mL twice a day. Also on sertraline 100 mg, Requip 6 mg daily at bedtime, Seroquel 600 mg daily at bedtime, metformin 1000 mg twice a day lithium carbonate 600 mg twice a day and levothyroxine. Lorazepam 1-2 mg daily when necessary. On review of records, it appears patient was seen by the neurologist Dr. Buchanan for recurrent seizures and was felt patient has possible nonepileptic psycho genic seizures. Her seizure-like activity increases during holidays and times of stress and after negative interactions with other people. Patient denies any tobacco or alcohol use. Review of Systems Complains of tiredness, sleepiness, denies any double vision loss of vision hearing loss, hoarseness, sore throat, dysphagia. Denies any chest pain shortness of breath, wheezing or cough. Denies nausea vomiting diarrhea. Denies any skin rash. Denies neck or back pain. All other review of systems unremarkable. Past Medical History Past Medical History: No Reported History, Unable to Obtain Additional Past Medical History / Comment(s): Seizure-like activity/pseudoseizures, obesity, Polycystic ovary syndrome maintained on metformin outpatient basis, bipolar disorder/depression. History of Any Multi-Drug Resistant Organisms: None Reported Past Surgical History: Cholecystectomy, Tubal Ligation Past Anesthesia/Blood Transfusion Reactions: No Reported Reaction Past Psychological History: Anxiety, Bipolar, Depression Past Alcohol Use History: None Reported Past Drug Use History: None Reported - Past Family History Mother Family Medical History: Diabetes Mellitus, Hypertension, Rheumatoid Arthritis (RA) Father Family Medical History: Hypertension Medications and Allergies Home Medications Medication Instructions Recorded Confirmed Type Sertraline [Zoloft] 100 mg PO DAILY 08/23/16 08/10/20 History Albuterol Sulfate [Proair Hfa] 1 - 2 puff INHALATION RT-Q6H PRN 08/10/20 08/10/20 History LORazepam [Ativan] 1 - 2 mg PO DAILY PRN 08/10/20 08/10/20 History Levothyroxine Sodium [Synthroid] 175 mcg PO Q48H 08/10/20 08/10/20 History [place] Carbonate 600 mg PO BID 08/10/20 08/10/20 History QUEtiapine FUMARATE [SEROquel] 600 mg PO HS 08/10/20 08/10/20 History Topiramate [Topamax] 200 mg PO BID 08/10/20 08/10/20 History lamoTRIgine [LaMICtal] See Taper PO DAILY 08/10/20 08/10/20 History metFORMIN HCL 1,000 mg PO BID 08/10/20 08/10/20 History rOPINIRole HCL [Requip] 6 mg PO HS 08/10/20 08/10/20 History Allergies Allergy/AdvReac Type Severity Reaction Status Date / Time levetiracetam [From [facility]] AdvReac anger Verified 08/10/20 14:12 Physical Examination - Vital Signs Vital Signs: Vital Signs Temp Pulse Pulse Resp BP BP Pulse Ox 08/11/20 08:00 98.5 F 84 97/59 99 08/11/20 04:00 97.9 F 71 18 111/72 99 08/10/20 23:45 97.7 F 76 17 102/67 98 08/10/20 20:00 97.6 F 75 17 119/66 97 08/10/20 15:39 99 F 88 18 107/68 100 08/10/20 15:26 77 18 106/73 100 08/10/20 15:21 97.8 F 72 18 91/54 100 08/10/20 14:13 71 18 112/75 100 08/10/20 14:11 89 100 08/10/20 13:00 77 18 146/92 100 08/10/20 12:26 98.9 F 71 18 120/71 100 Intake and Output 08/10/20 08/11/20 08/11/20 22:59 06:59 14:59 Intake Total 600 Balance 600 Intake: Intake, IV Titration 600 Amount Potassium Chloride 10 meq 300 In Water For Injection 1 100ml.bag @ 100 mls/hr IVPB Q1HR [facility] Rx#: [id number] Sodium Chloride 0.9% 1, 300 000 ml @ 75 mls/hr IV . [id number] [facility] Rx#:[id number] Other: # Voids 0 Weight 79.379 kg 79 kg On examination patient is a middle aged female, who appears somewhat slow mentation,E, but in no distress. She is slightly somnolent, and follows commands. Patient states it is June and the year is 19 and she thinks that she is in [facility] in [facility]. She knows name of the current in the next president. Speech and language functions are normal. Attention span, concentration is slightly diminished, fund of knowledge is somewhat okay. Detailed testing deferred. On cranial nerve examination pupils are round and reacting, visual nelson are full, extraocular muscles are intact with no nystagmus. Face is symmetric, tongue protrudes to the midline. Palatal elevation sensation normal, hearing and shoulder shrug normal. Facial sensation normal. On muscle strength testing there is no pronator drift. Patient has diffuse generalized weakness, with decreased effort in arms and legs to no more than 4- to 4+. Reflexes are symmetric, plantars downgoing. Sensory touch is equal. No ataxia for [id number] testing. Tone and bulk of muscles normal. Gait deferred. There is no obvious bruit, S1 and S2 audible, chest is clear, abdomen soft nontender, peripheral pulses present. Results - Laboratory Findings CBC and BMP: 08/11/20 06:34 08/11/20 06:34 Abnormal Lab Findings: Abnormal Labs 08/10/20 08/10/20 08/10/20 13:50 15:38 18:17 Hgb Potassium 3.3 L Chloride 116 H Carbon Dioxide 18 L Alkaline Phosphatase 34 L Creatine Kinase 221 H Urine Appearance Cloudy H Urine Protein Trace H Urine Blood Small H Ur Leukocyte Esterase Large H Urine RBC 18 H Urine WBC >182 H Ur Squamous Epith Cells 21 H Calcium Oxalate Crystal Many H Amorphous Sediment Rare H Urine Bacteria Few H Urine Mucus Rare H U Tricyclic Antidepress Detected H U Benzodiazepines Scrn Detected H U Marijuana (THC) Screen Detected H 08/11/20 08/11/20 06:34 06:34 Hgb 11.2 L Potassium Chloride 116 H Carbon Dioxide 19 L Alkaline Phosphatase Creatine Kinase Urine Appearance Urine Protein Urine Blood Ur Leukocyte Esterase Urine RBC Urine WBC Ur Squamous Epith Cells Calcium Oxalate Crystal Amorphous Sediment Urine Bacteria Urine Mucus U Tricyclic Antidepress U Benzodiazepines Scrn U Marijuana (THC) Screen Assessment and Plan Assessment: * 40-year-old female with history of seizure disorder for about 4-1/2 years, came with multiple breakthrough seizures. Uncertain if patient has epileptic seizures, nonepileptic seizures or combination of both. * Altered mental status, possibly due to metabolic encephalopathy. Patient on multiple psychoactive medications which could be contributing. Post ictal effect also a possibility. * UTI * Diabetes Plan: * Patient had an EEG performed today, which was essentially normal awake, drowsy and sleep EEG. No epileptiform activity was seen. * Patient will be continued on Topamax 200 mg twice a day. Patient believes she was doing much better while she was taking Lamictal. We will resume Lamictal 25 mg twice a day for one week and then she will increase to 50 mg twice a day. Patient has an appointment with her neurologist Dr. Mast next month. She will continue Epidiolex for seizure disorder for now. * Patient lives alone. Patient was informed of [place] state law of no driving unless seizure free for 6 months, climbing ladders, operate dangerous machinery or unsupervised swimming. * Patient is on multiple psychoactive medications including lithium 600 mg twice a day, Seroquel 600 mg at bedtime, Requip 6 mg at bedtime, sertraline 100 mg daily besides above seizure medications. Psychiatry on board, adjusting psych medications. Consider decreasing Requip to 4 mg at bedtime.
--- NOTE | 2020-08-11 16:08 | EEG ---
ELECTROENCEPHALOGRAM REPORT DATE OF SERVICE: 08/11/2020. PREAMBLE: This is a 40-year-old female with history of seizure disorder. This study is performed to evaluate for any epileptiform activity. EEG FINDINGS: This is a 21 channel routine EEG recording in a patient utilizing 10-20 international system with referential and bipolar montages. Background consists of well developed, well regulated, moderate voltage activity in mixed alpha with a beta frequency rhythm. Background is posterior dominant and is reactive to eye opening and closing. Photic driving response was not seen. Mild drowsiness was seen with appearance of bilaterally symmetric theta frequency rhythm. Stage II sleep was seen briefly at the end of the study. No focal or generalized epileptiform activity was seen. IMPRESSION: This is essentially a normal awake, drowsy and sleep EEG. Presence of excessive low-voltage fast frequency beta activity is suggestive of medication effect. No epileptiform activity was seen. MMJULIAL / IJN: [id number] / MTDD
[2020-08-11 20:11] LABS: Glucose,Whole Blood 106 mg/dL (75-99)
[2020-08-11] MEDS ORDERED: QUEtiapine 200 MG TAB PO SCH (21:00)
[2020-08-12 07:49] VITALS: RESP 18
[2020-08-12] MEDS: LITHIUM CARBONATE 300 MG CAP PO SCH (09:00)
[2020-08-12] MEDS: metFORMIN 500 MG TAB PO SCH (09:00)
[2020-08-12 09:32] LABS: Lamotrigine (Lamictal) <0.2 ug/mL (2.0-15.0)
[2020-08-12] MEDS ORDERED: lamoTRIgine 25 MG TAB PO SCH (10:30)
[2020-08-12] MEDS: SERTRALINE 100 MG TAB PO SCH (10:49)
[2020-08-12] MEDS: TOPIRAMATE 100 MG TAB PO SCH (10:49)
[2020-08-12] MEDS: SODIUM CHLORIDE 0.9% 1,000 ML IV SCH (10:51)
--- NOTE | 2020-08-12 12:29 | CT ---
EXAMINATION TYPE: CT brain wo con DATE OF EXAM: 08/12/2020 COMPARISON: 08/10/2020 HISTORY: Fall, struck head CT DLP: 1091 mGycm. Automated Exposure Control for Dose Reduction was Utilized. TECHNIQUE: CT scan of the head is performed without contrast. FINDINGS: There is no acute intracranial hemorrhage, mass effect, or midline shift identified. The ventricles and sulci are within normal limits in size. The globes are intact and the visualized sin uses are clear. IMPRESSION: No acute intracranial hemorrhage, mass effect, or midline shift is seen.
[2020-08-12 13:38] LABS: Appearance,Urine Clear (Clear); Bilirubin,Urine Negative (Negative); Blood,Urine Trace (Negative); Color,Urine Colorless; Glucose,Urine (UA) Negative (Negative); Ketones,Urine Negative (Negative); Leukocyte Esterase,Urine Trace (Negative); Mucus,Urine Rare /hpf; Nitrite,Urine Negative (Negative); Protein,Urine Negative (Negative); RBC,Urine <1 /hpf (0-5); Specific Gravity,Urine 1.004 (1.001-1.035); Squamous Epithelial Cell,Urine 2 /hpf (0-4); Urobilinogen,Urine <2.0 mg/dL (<2.0); WBC,Urine 1 /hpf (0-5)
[2020-08-12 14:48] VITALS: BP 119/71; PULSE 66; TEMP 97.8
--- NOTE | 2020-08-12 16:06 | P.PN ---
Subjective Progress Note Date: 08/12/20 Patient offers no complaints. Patient is laying comfortably in the bed. Patient is much more alert and awake. In no distress. Speech and language functions are normal. Cranial nerves are normal. Muscle strength is normal. No ataxia. Objective - Vital Signs Vital signs: Vital Signs Temp 97.8 F 08/12/20 14:00 Pulse 66 08/12/20 14:00 Resp 18 08/12/20 14:00 BP 119/71 08/12/20 14:00 Pulse Ox 100 08/12/20 14:00 Intake & Output 08/11/20 08/12/20 08/12/20 18:59 06:59 18:59 Intake Total 540 Output Total 200 Balance 340 Intake: Oral 540 Output: Urine 200 Other: Voiding Method Incontinent # Voids 0 - Labs CBC & Chem 7: 08/11/20 06:34 08/11/20 06:34 Labs: Abnormal Lab Results - Last 24 Hours (Table) 08/11/20 08/12/20 Range/Units 20:03 11:55 POC Glucose (mg/dL) 106 H (75-99) mg/dL Urine Blood Trace H (Negative) Ur Leukocyte Esterase Trace H (Negative) Urine Mucus Rare H (None) /hpf Microbiology - Last 24 Hours (Table) 08/10/20 15:38 Urine Culture - Preliminary Urine,Voided Gram Neg Bacilli Assessment and Plan Assessment: * 40-year-old female with history of seizure disorder for about 4-1/2 years, came with multiple breakthrough seizures. Uncertain if patient has epileptic seizures, nonepileptic seizures or combination of both. * Altered mental status, possibly due to metabolic encephalopathy. Patient on multiple psychoactive medications which could be contributing. Post ictal effect also a possibility. * UTI * Diabetes Plan: * EEG performed 08/11/2020 was essentially normal awake, drowsy and sleep EEG. No epileptiform activity was seen. * Patient will be continued on Topamax 200 mg twice a day. Patient gives him mo re information about her dose of Lamictal. Patient today tells me that she is taking Lamictal 75 mg at bedtime as per her psychiatrist. She feels she was doing the best when she was taking Lamictal 200 mg twice a day. She was taken off Lamictal by her neurologist. She however wants to go back on it. Patient earlier today had a fall. We will therefore optimize Lamictal to 50 mg twice a day. Patient has an appointment with her neurologist Dr. Mast next month. She will continue Epidiolex for seizure disorder for now. * Patient lives alone. Patient was informed of [place] state law of no driving unless seizure free for 6 months, climbing ladders, operate dangerous machinery or unsupervised swimming. * Patient is on multiple psychoactive medications including lithium 600 mg twice a day, Seroquel 600 mg at bedtime, Requip 6 mg at bedtime, sertraline 100 mg daily besides above seizure medications. Psychiatry on board, adjusting psych medications. Consider decreasing Requip to 4 mg at bedtime.
--- NOTE | 2020-08-12 16:25 | P.DS ---
Providers Date of admission: 08/10/20 14:59 Expected date of discharge: 08/12/20 Attending physician: Sabrina Rice DO Consults: 08/10/20 14:59 Consult Physician Routine Consulting Provider: Anson Sauer Consult Reason/Comments: Seizure Do you want consulting provider notified?: Yes 08/10/20 19:15 Consult Physician Routine Consulting Provider: Jose Blevins Consult Reason/Comments: bipolar disorder, pseudoseizure Do you want consulting provider notified?: Yes Primary care physician: Stated None Hospital Course: Discharge Diagnosis: breakthrough seizures pseudoseizures acute encephalopathy- post ictal vs psychotropic medications UTI ruled out on 10-49,000 colonies without symptoms consistent with bacturia Hypokalemia Hospital Course: Patient is a 40-year-old female with a past medical history of seizure disorder, pseudoseizures disorder, and bipolar disorder who was brought in the ER by EMS when friends noted seizure activity. EMS gave 5 of IM Versed in transport to the emergency department. Initially on arrival she appeared post ictal. Patient reported in the emergency department that she follows with neurology at [facility] has approximately 2 seizures weekly. Initial laboratory analysis showed a potassium of 3.3, chloride 116, and carbon dioxide of 18. She had what appeared to be a pseudoseizure and 1 additional real seizure in the emergency department with a post ictal state. She received Ativan. Head CT with no acute process. She was admitted to the cardiac floor for further monitoring. On arrival here she was intermittently following commands and moving her lower extremities while flapping her upper extremities as witnessed by nursing. She then was noted actively striking the bed with her hands. She was asking to be intubated for her seizures. After this activity a stat lactic acid and prolactin level were ordered and normal. Which are consistent with pseudoseizure. She was seen by neuro and had felt better on increased lamicatal dosing. She had been taking Lamictal 75 mg at home. She will be started on Lamictal 50 mg BID. She will follow with her outpatient neurologist and psychiatrist. Her EEG was noraml. Her Lamotrigine level was <0.2 and [place] level was 0.2, On day of discharge she did have a fall, she reports that she does not know why she fell. Witnessed by nursing patient had taken her bed rails down. She had a repeat head CT without any acute process. She was monitored for 6 hours without change in neurologist status. She was determined stable for discharge home. Patient seen and examined at bedside. Vital signs reviewed and stable. General: non toxic, no distress, appears at stated age Derm: warm, dry Head: atraumatic, normocephalic, symmetric Eyes: EOMI, no lid lag, anicteric sclera Mouth: no lip lesion, mucus membranes moist Cardiovascular: S1S2 reg, no murmur, positive posterior tibial pulse bilateral, Lungs: CTA bilateral, no rhonchi, no rales , no accessory muscle use Abdominal: soft, nontender to palpation, no guarding, no appreciable organomegaly Ext: no gross muscle atrophy, no edema, no contractures, no pain to palpation of wrist, elbows, shoulders. Muscle strength 4/5 in b/l UE with giveway weakness. No pain to palpation of bilateral ankles, knees. No pain with pelvic rock. Neuro: CN II-XI grossly intact, no focal neuro deficits Psych: Alert, oriented, flat and withdrawn. A total of 35 minutes of time were spent preparing this complex discharge summary . Patient Condition at Discharge: Stable Plan - Discharge Summary Discharge Rx Participant: No New Discharge Prescriptions: New lamoTRIgine [LaMICtal] 50 mg PO BID #60 tab Continue rOPINIRole HCL [Requip] 6 mg PO HS Topiramate [Topamax] 200 mg PO BID QUEtiapine FUMARATE [SEROquel] 600 mg PO HS metFORMIN HCL 1,000 mg PO BID Albuterol Sulfate [Proair Hfa] 1 - 2 puff INHALATION RT-Q6H PRN PRN Reason: Shortness Of Breath [place] Carbonate 600 mg PO BID Levothyroxine Sodium [Synthroid] 175 mcg PO Q48H LORazepam [Ativan] 1 - 2 mg PO DAILY PRN PRN Reason: Anxiety Discontinued lamoTRIgine [LaMICtal] See Taper PO DAILY No Action Sertraline [Zoloft] 100 mg PO DAILY Discharge Medication List Sertraline [Zoloft] 100 mg PO DAILY 08/23/16 [History] Albuterol Sulfate [Proair Hfa] 1 - 2 puff INHALATION RT-Q6H PRN 08/10/20 [History] LORazepam [Ativan] 1 - 2 mg PO DAILY PRN 08/10/20 [History] Levothyroxine Sodium [Synthroid] 175 mcg PO Q48H 08/10/20 [History] [place] Carbonate 600 mg PO BID 08/10/20 [History] QUEtiapine FUMARATE [SEROquel] 600 mg PO HS 08/10/20 [History] Topiramate [Topamax] 200 mg PO BID 08/10/20 [History] metFORMIN HCL 1,000 mg PO BID 08/10/20 [History] rOPINIRole HCL [Requip] 6 mg PO HS 08/10/20 [History] lamoTRIgine [LaMICtal] 50 mg PO BID #60 tab 08/12/20 [Rx] Follow up Appointment(s)/Referral(s): None,Stated [Primary Care Provider] - 1-2 days Activity/Diet/Wound Care/Special Instructions: Activity: as tolerated Diet: Regular Special Instructions: Follow-up with your psychiatrist on 08/18 as already scheduled Follow-up with your neurologist as scheduled next month [place] state law of no driving unless seizure free for 6 months. No climbing ladders, operating dangerous machinery or unsupervised swimming.
[2020-08-13] MEDS ORDERED: LEVOTHYROXINE 88 MCG TAB PO SCH (06:30)
[2020-08-14 08:00] LABS: Topiramate 6.6 ug/mL (2.0-20.0)
== END 2020-08-12 17:38 | disposition home or self-care (01) ==
LOC: EC 12:21 → 3SCARD 14:59 → INTOOBSV 14:59 → 3SCARD 15:40 → 5NMEDONC 08-11 22:59 → UNDODISIN 08-12 17:38
PROVIDERS: ADMIT Internal Medicine; ATTEND Internal Medicine
DX: G40.919 Epilepsy, unspecified, intractable, without status epilepticus (principal); G93.40 Encephalopathy, unspecified; E87.6 Hypokalemia; F31.9 Bipolar disorder, unspecified; R74.8 Abnormal levels of other serum enzymes; R32 Unspecified urinary incontinence; E11.9 Type 2 diabetes mellitus without complications; F41.9 Anxiety disorder, unspecified; E66.9 Obesity, unspecified; Z68.29 Body mass index [BMI] 29.0-29.9, adult; E28.2 Polycystic ovarian syndrome; R06.02 Shortness of breath; Z90.49 Acquired absence of other specified parts of digestive tract; Z79.899 Other long term (current) drug therapy; Z79.890 Hormone replacement therapy; Z79.84 Long term (current) use of oral hypoglycemic drugs; Z88.8 Allergy status to other drugs, medicaments and biological substances; Z82.49 Family history of ischemic heart disease and other diseases of the circulatory system; Z83.3 Family history of diabetes mellitus; Z82.61 Family history of arthritis
CPT/HCPCS: 96366; 96376; 96361; 96365; 96375; 99285; 36415; 95819; 93005; 80053; 80048; 80175; 80201; 82550; 83605; 80178; 85025; 85027; 81001 ×2; 84146; 80306; 87086; 87077; 87186; 70450 ×2; G0378 ×4; J2060; J0696; J3480; 96374

== ENCOUNTER 2020-08-15 00:12 | Observation (INO) | payer OTHER ==
--- NOTE | 2020-08-15 00:21 | ED ---
Seizure HPI - General Stated Complaint: seizure Time Seen by Provider: 08/15/20 00:19 Source: RN notes reviewed, old records reviewed Limitations: no limitations - History of Present Illness Initial Comments: This is a 40-year-old female presents is a poor strain currently secondary to postictal state, patient's brought in by EMS for seizure-like activity. Patient be he did have community mental health out to her house, patient denies drug or alcohol abuse MD Complaint: seizure, possible seizure -: hour(s) Description of Episode: loss of consciousness, tonic-clonic movement, post-event confusion -: second(s) Witnessed: yes - by bystander Seizure History: known seizure disorder, history of withdrawal seizures, history of non-compliance with treatment Possible Precipitating Event: none Associated Symptoms: denies other symptoms Treatments Prior to Arrival: none - Related Data Home Medications Medication Instructions Recorded Confirmed Sertraline [Zoloft] 100 mg PO DAILY 08/23/16 08/10/20 Albuterol Sulfate [Proair Hfa] 1 - 2 puff INHALATION RT-Q6H PRN 08/10/20 08/10/20 LORazepam [Ativan] 1 - 2 mg PO DAILY PRN 08/10/20 08/10/20 Levothyroxine Sodium [Synthroid] 175 mcg PO Q48H 08/10/20 08/10/20 [place] Carbonate 600 mg PO BID 08/10/20 08/10/20 QUEtiapine FUMARATE [SEROquel] 600 mg PO HS 08/10/20 08/10/20 Topiramate [Topamax] 200 mg PO BID 08/10/20 08/10/20 metFORMIN HCL 1,000 mg PO BID 08/10/20 08/10/20 rOPINIRole HCL [Requip] 6 mg PO HS 08/10/20 08/10/20 Previous Rx's Medication Instructions Recorded lamoTRIgine [LaMICtal] 50 mg PO BID #60 tab 08/12/20 Allergies Allergy/AdvReac Type Severity Reaction Status Date / Time levetiracetam [From [facility]] AdvReac anger Verified 08/10/20 14:12 Review of Systems ROS Statement: Those systems with pertinent positive or pertinent negative responses have been documented in the HPI. ROS Other: All systems not noted in ROS Statement are negative. Past Medical History Past Medical History: No Reported History, Unable to Obtain Additional Past Medical History / Comment(s): Seizure-like activity/pseudoseizures, obesity, Polycystic ovary syndrome maintained on metformin outpatient basis, bipolar disorder/depression. History of Any Multi-Drug Resistant Organisms: None Reported Past Surgical History: Cholecystectomy, Tubal Ligation Past Anesthesia/Blood Transfusion Reactions: No Reported Reaction Past Psychological History: Anxiety, Bipolar, Depression Past Alcohol Use History: None Reported Past Drug Use History: None Reported - Past Family History Mother Family Medical History: Diabetes Mellitus, Hypertension, Rheumatoid Arthritis (RA) Father Family Medical History: Hypertension General Exam General appearance: alert, in no apparent distress Head exam: Present: atraumatic, normocephalic, normal inspection Eye exam: Present: normal appearance, PERRL, EOMI. Absent: scleral icterus, conjunctival injection, periorbital swelling ENT exam: Present: normal exam, mucous membranes moist Neck exam: Present: normal inspection. Absent: tenderness, meningismus, lymphadenopathy Respiratory exam: Present: normal lung sounds bilaterally. Absent: respiratory distress, wheezes, rales, rhonchi, stridor Cardiovascular Exam: Present: regular rate, normal rhythm, normal heart sounds. Absent: systolic murmur, diastolic murmur, rubs, gallop, clicks GI/Abdominal exam: Present: soft, normal bowel sounds. Absent: distended, tenderness, guarding, rebound, rigid Extremities exam: Present: normal inspection, full ROM, normal capillary refill. Absent: tenderness, pedal edema, joint swelling, calf tenderness Back exam: Present: normal inspection Neurological exam: Present: alert, oriented X3, CN II-XII intact Psychiatric exam: Present: normal affect, normal mood Skin exam: Present: warm, dry, intact, normal color. Absent: rash Course Vital Signs 08/15/20 08/15/20 00:14 02:15 Temperature 97.8 F Pulse Rate 86 80 Respiratory 18 18 Rate Blood Pressure 118/80 97/68 O2 Sat by Pulse 99 100 Oximetry - Reevaluation(s) Reevaluation #1: 08/15/20 02:32 Medical record is reviewed Reevaluation #2: 08/15/20 02:32 No recurrent seizures here in the ER Reevaluation #3: 08/15/20 02:32 Patient informed results, questions have been answered Medical Decision Making - Medical Decision Making 40 female to the ER for seizure history of seizures. Patient will be discharged home - Lab Data Result diagrams: 08/15/20 00:38 08/15/20 00:38 Lab Results 08/15/20 08/15/20 Range/Units 00:38 00:38 WBC 7.4 (3.8-10.6) k/uL RBC 4.09 (3.80-5.40) m/uL Hgb 11.6 (11.4-16.0) gm/dL Hct 34.6 (34.0-46.0) % MCV 84.6 (80.0-100.0) fL MCH 28.3 (25.0-35.0) pg MCHC 33.5 (31.0-37.0) g/dL RDW 14.3 (11.5-15.5) % Plt Count 233 (150-450) k/uL MPV 6.8 Neutrophils % 85 % Lymphocytes % 10 % Monocytes % 2 % Eosinophils % 1 % Basophils % 1 % Neutrophils # 6.3 (1.3-7.7) k/uL Lymphocytes # 0.8 L (1.0-4.8) k/uL Monocytes # 0.2 (0-1.0) k/uL Eosinophils # 0.0 (0-0.7) k/uL Basophils # 0.1 (0-0.2) k/uL Sodium 139 (137-145) mmol/L Potassium 4.1 (3.5-5.1) mmol/L Chloride 110 H (98-107) mmol/L Carbon Dioxide 22 (22-30) mmol/L Anion Gap 7 mmol/L BUN 12 (7-17) mg/dL Creatinine 0.77 (0.52-1.04) mg/dL Est GFR (CKD-EPI)AfAm >90 (>60 ml/min/1.73 sqM) Est GFR (CKD-EPI)NonAf >90 (>60 ml/min/1.73 sqM) Glucose 127 H (74-99) mg/dL Calcium 8.6 (8.4-10.2) mg/dL Total Bilirubin 0.3 (0.2-1.3) mg/dL AST 26 (14-36) U/L ALT 14 (4-34) U/L Alkaline Phosphatase 31 L (38-126) U/L Total Protein 7.0 (6.3-8.2) g/dL Albumin 4.2 (3.5-5.0) g/dL Salicylates <1.0 mg/dL Acetaminophen <10.0 ug/mL Phenytoin <3.0 ug/mL Valproic Acid <10.0 ug/mL Carbamazepine <3.0 ug/mL Serum Alcohol <10 mg/dL - EKG Data -: EKG Interpreted by Me (EKG sinus rhythm 87, IN 136 QRS 96 QTc 495) Disposition Clinical Impression: Epileptic seizure, generalized Disposition: HOME SELF-CARE Condition: Fair Instructions (If sedation given, give patient instructions): Recurrent Seizures in Adults (ED) Is patient prescribed a controlled substance at d/c from ED?: No Referrals: None,Stated [Primary Care Provider] - 1-2 days
[2020-08-15] MEDS ORDERED: SODIUM CHLORIDE 0.9% 1,000 ML IV STA ×2 (00:26)
[2020-08-15 01:02] LABS: Basophils # (A) 0.1 k/uL (0-0.2); Basophils % (A) 1 %; Eosinophils % (A) 1 %; HCT 34.6 % (34.0-46.0); HGB 11.6 gm/dL (11.4-16.0); Lymphocytes # (A) 0.8 k/uL (1.0-4.8); Lymphocytes % (A) 10 %; MCH 28.3 pg (25.0-35.0); MCHC 33.5 g/dL (31.0-37.0); MCV 84.6 fL (80.0-100.0); Mean Platelet Volume 6.8; Monocytes # (A) 0.2 k/uL (0-1.0); Monocytes % (A) 2 %; Neutrophils # (A) 6.3 k/uL (1.3-7.7); Neutrophils % (A) 85 %; Platelet Count 233 k/uL (150-450); RBC 4.09 m/uL (3.80-5.40); RDW 14.3 % (11.5-15.5); WBC 7.4 k/uL (3.8-10.6)
[2020-08-15 01:14] LABS: Acetaminophen <10.0 ug/mL; African American GFR (CKD) >90 (>60 ml/min/1.73 sqM); Albumin 4.2 g/dL (3.5-5.0); Alcohol <10 mg/dL; Anion Gap 7 mmol/L; Calcium 8.6 mg/dL (8.4-10.2); Carbamazepine (Tegretol) <3.0 ug/mL; Carbon Dioxide 22 mmol/L (22-30); Chloride 110 mmol/L (98-107); Glucose 127 mg/dL (74-99); Non-African American GFR(CKD) >90 (>60 ml/min/1.73 sqM); Phenytoin (Dilantin) <3.0 ug/mL; Salicylate <1.0 mg/dL; Sodium 139 mmol/L (137-145); Total Bilirubin 0.3 mg/dL (0.2-1.3)
[2020-08-15 01:17] LABS: Valproic Acid (Depakene) <10.0 ug/mL
[2020-08-15 01:20] LABS: ALT 14 U/L (4-34); AST 26 U/L (14-36); Alkaline Phosphatase 31 U/L (38-126); Blood Urea Nitrogen 12 mg/dL (7-17); Potassium 4.1 mmol/L (3.5-5.1)
[2020-08-15] MEDS ORDERED: LORazepam 2 MG/ML INJ IM STA (02:42)
[2020-08-15] MEDS ORDERED: LORazepam 1 MG TAB PO STA (03:40)
--- NOTE | 2020-08-15 06:03 | ED ---
Medical Decision Making - Medical Decision Making 40 female to the ED w recurrent seizure, patient will be admitted for unresponsiveness. Prolonged Posticalt v histrionic. - Lab Data Result diagrams: 08/15/20 00:38 08/15/20 00:38 Lab Results 08/15/20 08/15/20 Range/Units 00:38 00:38 WBC 7.4 (3.8-10.6) k/uL RBC 4.09 (3.80-5.40) m/uL Hgb 11.6 (11.4-16.0) gm/dL Hct 34.6 (34.0-46.0) % MCV 84.6 (80.0-100.0) fL MCH 28.3 (25.0-35.0) pg MCHC 33.5 (31.0-37.0) g/dL RDW 14.3 (11.5-15.5) % Plt Count 233 (150-450) k/uL MPV 6.8 Neutrophils % 85 % Lymphocytes % 10 % Monocytes % 2 % Eosinophils % 1 % Basophils % 1 % Neutrophils # 6.3 (1.3-7.7) k/uL Lymphocytes # 0.8 L (1.0-4.8) k/uL Monocytes # 0.2 (0-1.0) k/uL Eosinophils # 0.0 (0-0.7) k/uL Basophils # 0.1 (0-0.2) k/uL Sodium 139 (137-145) mmol/L Potassium 4.1 (3.5-5.1) mmol/L Chloride 110 H (98-107) mmol/L Carbon Dioxide 22 (22-30) mmol/L Anion Gap 7 mmol/L BUN 12 (7-17) mg/dL Creatinine 0.77 (0.52-1.04) mg/dL Est GFR (CKD-EPI)AfAm >90 (>60 ml/min/1.73 sqM) Est GFR (CKD-EPI)NonAf >90 (>60 ml/min/1.73 sqM) Glucose 127 H (74-99) mg/dL Calcium 8.6 (8.4-10.2) mg/dL Total Bilirubin 0.3 (0.2-1.3) mg/dL AST 26 (14-36) U/L ALT 14 (4-34) U/L Alkaline Phosphatase 31 L (38-126) U/L Total Protein 7.0 (6.3-8.2) g/dL Albumin 4.2 (3.5-5.0) g/dL Salicylates <1.0 mg/dL Acetaminophen <10.0 ug/mL Phenytoin <3.0 ug/mL Valproic Acid <10.0 ug/mL Carbamazepine <3.0 ug/mL Serum Alcohol <10 mg/dL Disposition Clinical Impression: Epileptic seizure, generalized Disposition: ADMITTED IP TO THIS HOSP Condition: Fair Instructions (If sedation given, give patient instructions): Recurrent Seizures in Adults (ED) Referrals: None,Stated [Primary Care Provider] - 1-2 days
[2020-08-15] MEDS ORDERED: LORazepam 2 MG/ML INJ IV PRN (06:33)
[2020-08-15 10:25] LABS: Appearance,Urine Clear (Clear); Bilirubin,Urine Negative (Negative); Blood,Urine Negative (Negative); Color,Urine Yellow; Glucose,Urine (UA) Negative (Negative); Ketones,Urine Negative (Negative); Leukocyte Esterase,Urine Negative (Negative); Nitrite,Urine Negative (Negative); Protein,Urine Negative (Negative); Specific Gravity,Urine 1.012 (1.001-1.035); Urobilinogen,Urine <2.0 mg/dL (<2.0)
[2020-08-15 10:36] LABS: Amphetamine Screen,Urine Not Detected (NotDetected); Barbiturate Screen,Urine Not Detected (NotDetected); Benzodiazepines Screen,Urine Detected (NotDetected); Cocaine Screen,Urine Not Detected (NotDetected); Methadone Screen, Urine Not Detected (NotDetected); Opiate Screen,Urine Not Detected (NotDetected); Oxycodone Screen, Urine Not Detected (NotDetected); Phencyclidine Screen,Urine Not Detected (NotDetected); Tricyclic Antidepressant,Urine Detected (NotDetected); Urn Cannabinoid Scrn Detected (NotDetected)
[2020-08-15] MEDS ORDERED: ALBUTEROL NEBULIZED 2.5 MG/3 ML INHALATION PRN (10:53)
[2020-08-15] MEDS ORDERED: LEVOTHYROXINE 88 MCG TAB PO ONE (11:00)
--- NOTE | 2020-08-15 13:22 | P.HPIM ---
History of Present Illness 40-year-old female was admitted for possibility of seizures. Patient aberrantly was postictal in ER physician evaluated when I valid the patient patient is lethargic but the I believe that G is intentional or patient to when questioned multiple times she does answer and she does respond well. Patient was recently admitted in the hospital for seizures at that time patient was diagnosed with pseudoseizures was discharged on Lamictal, Topamax and as needed lorazepam. Patient follows with a neurologist at [facility] where she was diagnosed with pseudoseizures although patient is on couple of antiseizure medication that are also helpful for bipolar disorder patient appears to have significant psychiatric issues. Patient the was asked to follow-up with her neurologist and patient does have an appointment with the neurologist and patient had follow-up with the psychiatric rest on of this month. Patient was discharged couple days ago from the hospital when she was extensively evaluated. Neurology will evaluate the patient again today discussed with neurology the recommending increase in the Lamictal. Patient received quite a bit of Ativan which will be discontinued and later today possibly patient can be discharged Review of Systems Except for those mentioned above rest of the review of systems is negative unable to get much of the review of systems as patient is not much willing to talk Past Medical History Past Medical History: No Reported History, Unable to Obtain Additional Past Medical History / Comment(s): Seizure-like activity/pseudoseizures, obesity, Polycystic ovary syndrome maintained on m etformin outpatient basis, bipolar disorder/depression. History of Any Multi-Drug Resistant Organisms: None Reported Past Surgical History: Cholecystectomy, Tubal Ligation Past Anesthesia/Blood Transfusion Reactions: No Reported Reaction Past Psychological History: Anxiety, Bipolar, Depression Past Alcohol Use History: None Reported Past Drug Use History: None Reported - Past Family History Mother Family Medical History: Diabetes Mellitus, Hypertension, Rheumatoid Arthritis (RA) Father Family Medical History: Hypertension Medications and Allergies Home Medications Medication Instructions Recorded Confirmed Type Sertraline [Zoloft] 100 mg PO DAILY 08/23/16 08/15/20 History Albuterol Sulfate [Proair Hfa] 1 - 2 puff INHALATION RT-Q6H PRN 08/10/20 08/15/20 History Levothyroxine Sodium [Synthroid] 175 mcg PO Q48H 08/10/20 08/15/20 History [place] Carbonate 600 mg PO BID 08/10/20 08/15/20 History QUEtiapine FUMARATE [SEROquel] 600 mg PO HS 08/10/20 08/15/20 History Topiramate [Topamax] 200 mg PO BID 08/10/20 08/15/20 History metFORMIN HCL 1,000 mg PO BID 08/10/20 08/15/20 History rOPINIRole HCL [Requip] 6 mg PO HS 08/10/20 08/15/20 History lamoTRIgine [LaMICtal] 50 mg PO BID #60 tab 08/12/20 08/15/20 Rx Allergies Allergy/AdvReac Type Severity Reaction Status Date / Time levetiracetam [From [facility]] AdvReac anger Verified 08/10/20 14:12 Physical Exam Vitals: Vital Signs Temp Pulse Pulse Resp BP BP Pulse Ox 08/15/20 08:56 97.8 F 81 18 120/79 100 08/15/20 06:31 80 18 127/83 98 08/15/20 03:48 80 16 141/60 97 08/15/20 02:15 80 18 97/68 100 08/15/20 00:14 97.8 F 86 18 118/80 99 Intake and Output 08/14/20 08/15/20 08/15/20 22:59 06:59 14:59 Other: # Voids 1 Weight 72.575 kg PHYSICAL EXAMINATION: GENERAL: The patient is drowsy and oriented x3, not in any acute distress. Well developed, well nourished. HEENT: Pupils are round and equally reacting to light. EOMI. No scleral icterus. No conjunctival pallor. Normocephalic, atraumatic. No pharyngeal erythema. No thyromegaly. CARDIOVASCULAR: S1 and S2 present. No murmurs, rubs, or gallops. PULMONARY: Chest is clear to auscultation, no wheezing or crackles. ABDOMEN: Soft, nontender, nondistended, normoactive bowel sounds. No palpable organomegaly. MUSCULOSKELETAL: No joint swelling or deformity. EXTREMITIES: No cyanosis, clubbing, or pedal edema. NEUROLOGICAL: Gross neurological examination did not reveal any focal deficits. SKIN: No rashes. Results CBC & Chem 7: 08/15/20 00:38 08/15/20 00:38 Labs: Abnormal Lab Results - Last 24 Hours (Table) 08/15/20 08/15/20 08/15/20 Range/Units 00:38 00:38 10:14 Lymphocytes # 0.8 L (1.0-4.8) k/uL Chloride 110 H (98-107) mmol/L Glucose 127 H (74-99) mg/dL Alkaline Phosphatase 31 L (38-126) U/L U Tricyclic Antidepress Detected H (NotDetected) U Benzodiazepines Scrn Detected H (NotDetected) U Marijuana (THC) Screen Detected H (NotDetected) Assessment and Plan Plan: -Pseudoseizures -Toxic encephalopathy from multiple medications -Marijuana abuse: Counseling was provided -Depression/bipolar disorder. Continue with the her antidepressants, lithium, Seroquel -Hypothyroidism -Nicotine use: Counseling was provided Plan as mentioned in HPI itself and patient will be discharged today.
--- NOTE | 2020-08-15 13:23 | P.DS ---
Providers Date of admission: 08/15/20 06:03 Attending physician: Dalia Elise Consults: 08/15/20 06:03 Consult Physician Routine Consulting Provider: Anson Sauer Consult Reason/Comments: sz Do you want consulting provider notified?: Yes Primary care physician: Stated None Hospital Course: As mentioned in HPI Patient Condition at Discharge: Fair Plan - Discharge Summary New Discharge Prescriptions: Discontinued LORazepam [Ativan] 1 - 2 mg PO DAILY PRN PRN Reason: Anxiety No Action Sertraline [Zoloft] 100 mg PO DAILY rOPINIRole HCL [Requip] 6 mg PO HS Topiramate [Topamax] 200 mg PO BID QUEtiapine FUMARATE [SEROquel] 600 mg PO HS metFORMIN HCL 1,000 mg PO BID Albuterol Sulfate [Proair Hfa] 1 - 2 puff INHALATION RT-Q6H PRN PRN Reason: Shortness Of Breath [place] Carbonate 600 mg PO BID Levothyroxine Sodium [Synthroid] 175 mcg PO Q48H lamoTRIgine [LaMICtal] 50 mg PO BID #60 tab Discharge Medication List Sertraline [Zoloft] 100 mg PO DAILY 08/23/16 [History] Albuterol Sulfate [Proair Hfa] 1 - 2 puff INHALATION RT-Q6H PRN 08/10/20 [Hist ory] Levothyroxine Sodium [Synthroid] 175 mcg PO Q48H 08/10/20 [History] [place] Carbonate 600 mg PO BID 08/10/20 [History] QUEtiapine FUMARATE [SEROquel] 600 mg PO HS 08/10/20 [History] Topiramate [Topamax] 200 mg PO BID 08/10/20 [History] metFORMIN HCL 1,000 mg PO BID 08/10/20 [History] rOPINIRole HCL [Requip] 6 mg PO HS 08/10/20 [History] lamoTRIgine [LaMICtal] 50 mg PO BID #60 tab 08/12/20 [Rx] Follow up Appointment(s)/Referral(s): None,Stated [Primary Care Provider] - 1-2 days Patient Instructions/Handouts: Recurrent Seizures in Adults (ED) Discharge Disposition: HOME SELF-CARE
--- NOTE | 2020-08-15 13:25 | P.CNNES ---
History of Present Illness Consult date: 08/15/20 Requesting physician: Jerry Turner Reason for Consult: Seizure History of Present Illness: Patient is a 40-year-old female, known to me from recent admission to the hospital. Please refer to my consultation note from 08/11/2020 and the progress note from 08/12/2020 for details. Patient came to the hospital by ambulance early this morning for seizure-like activity and post ictal state. When patient arrived to the hospital she was unresponsive, probably due to postictal state, versus histrionic. Patient at present is very somnolent, would open eyes sometimes, but then closes it. Patient is currently on Topamax 200 mg twice a day, Lamictal 50 mg twice a day, lithium 600 mg twice a day, Requip 6 mg at bedtime and Seroquel 600 mg at bedtime. Also on Zoloft 100 mg daily. Review of Systems ROS unobtainable: due to mental status Past Medical History Past Medical History: No Reported History, Unable to Obtain Additional Past Medical History / Comment(s): Seizure-like activity/pseudoseizures, obesity, Polycystic ovary syndrome maintained on metformin outpatient basis, bipolar disorder/depression. History of Any Multi-Drug Resistant Organisms: None Reported Past Surgical History: Cholecystectomy, Tubal Ligation Past Anesthesia/Blood Transfusion Reactions: No Reported Reaction Past Psychological History: Anxiety, Bipolar, Depression Past Alcohol Use History: None Reported Past Drug Use History: None Reported - Past Family History Mother Family Medical History: Diabetes Mellitus, Hypertension, Rheumatoid Arthritis (RA) Father Family Medical History: Hypertension Medications and Allergies Home Medications Medication Instructions Recorded Confirmed Type Sertraline [Zoloft] 100 mg PO DAILY 08/23/16 08/15/20 History Albuterol Sulfate [Proair Hfa] 1 - 2 puff INHALATION RT-Q6H PRN 08/10/20 08/15/20 History Levothyroxine Sodium [Synthroid] 175 mcg PO Q48H 08/10/20 08/15/20 History [place] Carbonate 600 mg PO BID 08/10/20 08/15/20 History QUEtiapine FUMARATE [SEROquel] 600 mg PO HS 08/10/20 08/15/20 History Topiramate [Topamax] 200 mg PO BID 08/10/20 08/15/20 History metFORMIN HCL 1,000 mg PO BID 08/10/20 08/15/20 History rOPINIRole HCL [Requip] 6 mg PO HS 08/10/20 08/15/20 History lamoTRIgine [LaMICtal] 50 mg PO BID #60 tab 08/12/20 08/15/20 Rx Allergies Allergy/AdvReac Type Severity Reaction Status Date / Time levetiracetam [From [facility]] AdvReac anger Verified 08/10/20 14:12 Physical Examination - Vital Signs Vital Signs: Vital Signs Temp Pulse Pulse Resp BP BP Pulse Ox 08/15/20 08:56 97.8 F 81 18 120/79 100 08/15/20 06:31 80 18 127/83 98 08/15/20 03:48 80 16 141/60 97 08/15/20 02:15 80 18 97/68 100 08/15/20 00:14 97.8 F 86 18 118/80 99 Intake and Output 08/14/20 08/15/20 08/15/20 22:59 06:59 14:59 Other: # Voids 1 Weight 72.575 kg On examination patient is a middle aged female, who is postictal at this time. Patient would not open her eyes, although sometimes would and then closes his back. When asked about changes in her medication, she did nod affirmative. Uncertain if it is functional sleepiness. Patient's pupils are large, about 6 mm reacting to 4 mm bilaterally. Gaze is midline. Oculocephalics could not be tested because of her position. Her face appears symmetric. Tone is equal. Plantars are mute. Reflexes are 1+. Detailed testing could not be done because of patient's sedation. No obvious seizure activity noted. Results - Laboratory Findings CBC and BMP: 08/15/20 00:38 08/15/20 00:38 Abnormal Lab Findings: Abnormal Labs 08/15/20 08/15/20 08/15/20 00:38 00:38 10:14 Lymphocytes # 0.8 L Chloride 110 H Glucose 127 H Alkaline Phosphatase 31 L U Tricyclic Antidepress Detected H U Benzodiazepines Scrn Detected H U Marijuana (THC) Screen Detected H Assessment and Plan Assessment: * Seizure disorder for about 4-1/2 years, came with multiple breakthrough seizures. Uncertain if she has epileptic seizures, nonepileptic or comb ination of both. * Altered mental status, possibly postictal state possible medication side effect. * Diabetes Plan: * Patient's EEG performed on 08/11/2020 was normal. * We will further optimize Lamictal to 100 mg twice a day. Lamictal is also a mood stabilizer. * We will decrease Requip to 4 mg at bedtime * Decrease Topamax to 150 minute gram twice a day. * Follow up with her neurologist in 1-2 weeks. * Neurologically clear, when patient wakes up with these medication changes.
[2020-08-15] MEDS: lamoTRIgine 100 MG TAB PO SCH (20:48)
[2020-08-15] MEDS: TOPIRAMATE 25 MG TAB PO SCH (20:52)
[2020-08-15] MEDS ORDERED: QUEtiapine 200 MG TAB PO SCH (21:00)
[2020-08-15] MEDS ORDERED: lamoTRIgine 25 MG TAB PO SCH (21:00)
[2020-08-15] MEDS ORDERED: TOPIRAMATE 100 MG TAB PO SCH ×2 (21:00)
[2020-08-15] MEDS ORDERED: rOPINIRole HCL 4 MG TABLET PO SCH ×2 (21:00)
[2020-08-15] MEDS: LITHIUM CARBONATE 300 MG CAP PO SCH (21:06)
[2020-08-16 04:51] VITALS: TEMP 98.3
[2020-08-16 08:34] VITALS: BP 99/63; PULSE 72; RESP 16
[2020-08-16] MEDS: LITHIUM CARBONATE 300 MG CAP PO SCH (08:34)
[2020-08-16] MEDS: lamoTRIgine 100 MG TAB PO SCH (08:34)
[2020-08-16] MEDS: TOPIRAMATE 25 MG TAB PO SCH (08:34)
[2020-08-16] MEDS ORDERED: SERTRALINE 100 MG TAB PO SCH (09:00)
--- NOTE | 2020-08-16 11:44 | P.DS ---
Providers Date of admission: 08/15/20 06:03 Attending physician: Dalia Elise Consults: 08/15/20 06:03 Consult Physician Routine Consulting Provider: Anson Sauer Consult Reason/Comments: sz Do you want consulting provider notified?: Yes Primary care physician: Stated None Hospital Course: refer to [facility] for further details of hospitalization additionally patient is admitted for possible seizures patient does have history of pseudoseizures was extensively evaluated in the past. Patient was evaluated by neurology patient was quite lethargic sleepy drowsy because of which patient was not discharged y esterday since she was having excessive drowsiness neurology recommended to cut down on requip and his seizure medications but increase the dose of Lamictal 200 twice a day. Patient is awake and alert today and is being discharged. Patient Condition at Discharge: Fair Plan - Discharge Summary New Discharge Prescriptions: New lamoTRIgine [LaMICtal] 100 mg PO BID 30 Days #60 tab Topiramate [Topamax] 50 mg PO BID 30 Days #120 tab Topiramate [Topamax] 100 mg PO BID 30 Days #60 tab Continue Sertraline [Zoloft] 100 mg PO DAILY QUEtiapine FUMARATE [SEROquel] 600 mg PO HS metFORMIN HCL 1,000 mg PO BID Albuterol Sulfate [Proair Hfa] 1 - 2 puff INHALATION RT-Q6H PRN PRN Reason: Shortness Of Breath [place] Carbonate 600 mg PO BID Levothyroxine Sodium [Synthroid] 175 mcg PO Q48H Changed rOPINIRole HCL [Requip] 3 mg PO HS 30 Days #30 cap Discontinued Topiramate [Topamax] 200 mg PO BID LORazepam [Ativan] 1 - 2 mg PO DAILY PRN PRN Reason: Anxiety lamoTRIgine [LaMICtal] 50 mg PO BID #60 tab Discharge Medication List Sertraline [Zoloft] 100 mg PO DAILY 08/23/16 [History] Albuterol Sulfate [Proair Hfa] 1 - 2 puff INHALATION RT-Q6H PRN 08/10/20 [History] Levothyroxine Sodium [Synthroid] 175 mcg PO Q48H 08/10/20 [History] [place] Carbonate 600 mg PO BID 08/10/20 [History] QUEtiapine FUMARATE [SEROquel] 600 mg PO HS 08/10/20 [History] metFORMIN HCL 1,000 mg PO BID 08/10/20 [History] Topiramate [Topamax] 50 mg PO BID 30 Days #120 tab 08/15/20 [Rx] Topiramate [Topamax] 100 mg PO BID 30 Days #60 tab 08/15/20 [Rx] lamoTRIgine [LaMICtal] 100 mg PO BID 30 Days #60 tab 08/15/20 [Rx] rOPINIRole HCL [Requip] 3 mg PO HS 30 Days #30 cap 08/15/20 [Rx] Follow up Appointment(s)/Referral(s): None,Stated [Primary Care Provider] - 1-2 days Patient Instructions/Handouts: Recurrent Seizures in Adults (ED) Discharge Disposition: HOME SELF-CARE Plan of Treatment: Follow with your neurologist in 1-2 weeks NO DRIVING for 6 months seizure free
[2020-08-16] MEDS ORDERED: rOPINIRole HCL 4 MG TABLET PO SCH (21:00)
[2020-08-17] MEDS ORDERED: LEVOTHYROXINE 88 MCG TAB PO SCH (06:30)
== END 2020-08-16 11:15 | disposition home or self-care (01) ==
LOC: EC 00:12 → 1SOBS 06:03
PROVIDERS: ADMIT Hospitalist; ATTEND Hospitalist
DX: G40.409 Other generalized epilepsy and epileptic syndromes, not intractable, without status epilepticus (principal); G92 Toxic encephalopathy; T50.905A Adverse effect of unspecified drugs, medicaments and biological substances, initial encounter; R53.83 Other fatigue; R40.0 Somnolence; E28.2 Polycystic ovarian syndrome; F31.9 Bipolar disorder, unspecified; E11.9 Type 2 diabetes mellitus without complications; E03.9 Hypothyroidism, unspecified; Z72.0 Tobacco use; Z90.49 Acquired absence of other specified parts of digestive tract; Z98.51 Tubal ligation status; F41.9 Anxiety disorder, unspecified; Z68.24 Body mass index [BMI] 24.0-24.9, adult; E66.9 Obesity, unspecified; Z83.3 Family history of diabetes mellitus; Z82.49 Family history of ischemic heart disease and other diseases of the circulatory system; Z82.61 Family history of arthritis; Z79.84 Long term (current) use of oral hypoglycemic drugs; Z79.890 Hormone replacement therapy; Z79.899 Other long term (current) drug therapy; Z88.8 Allergy status to other drugs, medicaments and biological substances
CPT/HCPCS: 96360; 96361; 96372; 99285; 36415; 93005; 80156; 80164; 80053; 80201; 80185; 85025; 81003; 80306; 83520; G0378 ×2; G0480 ×2; J2060; 80320; 80329